=== PATIENT | male | born 1940 | race Caucasian/White ===

== ENCOUNTER 2019-05-02 12:28 | Emergency (ER) | payer MEDICARE, BC ==
[~2019-05-02] VITALS: Ht 165.1 cm; Wt 59.0 kg
[~2019-05-02 12:28] MED LIST: ACET325T33 PO
[2019-05-02 12:36] VITALS: PULSE 76; Ht 165.1 cm; Wt 59.0 kg
[2019-05-02] MEDS ORDERED: ACETAMINOPHEN 325 MG TAB PO ONE (13:00)
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
[2019-05-02 13:27] VITALS: BP 176/79; RESP 18
== END 2019-05-02 13:31 | disposition home or self-care (01) ==
LOC: FTE 12:28
DX: S50.812A Abrasion of left forearm, initial encounter (principal); V49.49XA Driver injured in collision with other motor vehicles in traffic accident, initial encounter
CPT/HCPCS: 99282